=== PATIENT | female | born 1940 | race Caucasian/White ===

== ENCOUNTER 2022-01-28 06:25 | Day surgery (SDC) | payer MEDICARE, OTHER ==
[2022-01-28] MEDS ORDERED: BALANCED SALT IRRIG SOLN COMB1 500 ML, EPINEPHRINE-PF 1:1000 0.5 MG IO ONE ×4 (07:00→09:30)
[2022-01-28] MEDS ORDERED: BALANCED SALT IRRIG SOLN COMB1 0 ML ONE (07:09)
[2022-01-28] MEDS ORDERED: TETRACAINE HCL 0.5% OPHT DROP 2 ML BOTTLE ONE (07:09)
[2022-01-28] MEDS ORDERED: LIDOCAINE HCL-MPF 1% 5 ML VIAL ONE (07:09)
[2022-01-28] MEDS ORDERED: BALANCED SALT IRRIG SOLN COMB2 15 ML IRRIG.SOLN ONE (07:09)
[2022-01-28] MEDS ORDERED: MOXIFLOXACIN HCL 3 ML OPHT DROPS ONE (07:10)
[2022-01-28] MEDS ORDERED: ACETYLCHOLINE CHLORIDE 1% OPHT 1 EA KIT ONE (07:10)
[2022-01-28] MEDS ORDERED: PROPARACAINE 0.5% OPHT DROP 15 ML BOTTLE ONE (07:59)
[2022-01-28] MEDS ORDERED: PHENYLEPHRINE 2.5% OPHT DROP 2 ML BOTTLE ONE (07:59)
[2022-01-28] MEDS ORDERED: CYCLOPENTOLATE 1% OPHT DROP 2 ML BOTTLE ONE (07:59)
[2022-01-28] MEDS ORDERED: TROPICAMIDE 1% OPHT DROP 3 ML BOTTLE ONE (07:59)
[2022-01-28] MEDS ORDERED: KETOROLAC 0.5% OPHT DROP 3 ML BOTTLE ONE (07:59)
[2022-01-28] MEDS ORDERED: CIPROFLOXACIN 0.3% OPHT DROP 2.5 ML BOTTLE ONE (07:59)
[2022-01-28 08:04] LABS: MEAN CORPUSCULAR HEMOGLOBIN 30.4 uug (24.7-32.8); MEAN CORPUSCULAR VOLUME 90.7 fL (75.5-95.3); PLATELET COUNT (AUTO) 154 K/uL (179-408)
[2022-01-28 08:14] LABS: ALANINE AMINOTRANSFERASE 18 U/L (14-59); ALKALINE PHOSPHATASE 78 U/L (50-136); ASPARTATE AMINOTRANSFERASE 15 U/L (15-37); BILIRUBIN,TOTAL 0.3 mg/dL (0.2-1.0); CARBON DIOXIDE 22 mmol/L (21-32); CHLORIDE 107 mmol/L (98-107); CREATININE 2.2 mg/dL (0.6-1.3); GLUCOSE 110 mg/dL (74-106); POTASSIUM 4.4 mmol/L (3.5-5.1); TOTAL PROTEIN, SERUM 7.6 g/dL (6.4-8.2); UREA NITROGEN, BLOOD 54 mg/dL (7-18)
[2022-01-28] MEDS ORDERED: TRYPAN BLUE 0.5 ML DISP.SYRIN ONE (08:36)
[2022-01-28 08:41] LABS: *BILIRUBIN,URIN NEGATIVE (NEGATIVE); *BLOOD, URINE NEGATIVE (NEGATIVE); *CLARITY,URINE CLEAR (CLEAR); *COLOR,URINE YELLOW (YELLOW); *KETONES,URINE NEGATIVE (NEGATIVE); *UROBILINOGEN,URINE 0.2 E.U./dl (NORMAL); LEUKOCYTE ESTERASE ,URINE 1+ (NEGATIVE); NITRITE, URINE NEGATIVE (NEGATIVE); UGLUCOSE NEGATIVE (NEGATIVE)
[2022-01-28] MEDS ORDERED: methylPREDNISolone SOD SUCC 125 MG/2 ML VIAL ONE (09:42)
[2022-01-28] MEDS ORDERED: FENTANYL CITRATE 100 MCG/2 ML AMPUL ONE (09:42)
[2022-01-28] MEDS ORDERED: BUPIVACAINE PF 0.5% 30 ML VIAL ONE (09:50)
[2022-01-28] MEDS ORDERED: HYALURONIDASE,OVINE 200 UNITS/ML VIAL ONE (09:51)
[2022-01-28] MEDS ORDERED: HYALURONATE SODIUM 8.5 MG/0.85 ML ONE (10:18)
[2022-01-28] MEDS ORDERED: BALANCED SALT IRRIG SOLN COMB1 500 ML ONE (10:34)
[2022-01-28] MEDS ORDERED: NEO/POLYMYX B/DEXAME OPHT OINT 3.5 GM TUBE ONE (10:56)
[2022-01-28 11:13] LABS: BACTERIA,URINE FEW /HPF (NONE SEEN); RBC,URINE 0-3 /HPF (0-3); SQUAMOUS EPITHELIAL CELL,UR FEW /HPF (NONE SEEN)
[2022-01-28] MEDS ORDERED: PROPOFOL 200 MG/20 ML BOTTLE ONE (11:31)
[2022-01-28] MEDS ORDERED: LIDOCAINE-MPF 2% 5 ML VIAL ONE (11:31)
== END 2022-01-28 12:20 ==
LOC: DS 06:25
PROVIDERS: ATTEND Ophthalmology
DX: E11.36 Type 2 diabetes mellitus with diabetic cataract (principal); H25.12 Age-related nuclear cataract, left eye; I10 Essential (primary) hypertension; E78.00 Pure hypercholesterolemia, unspecified; K21.9 Gastro-esophageal reflux disease without esophagitis; D64.9 Anemia, unspecified; Z79.4 Long term (current) use of insulin; Z79.899 Other long term (current) drug therapy; Z98.890 Other specified postprocedural states; Z79.01 Long term (current) use of anticoagulants
CPT/HCPCS: 36415; 66984; 80053; 81001; 85025; 85730; 87086; 87426; J0171 ×2; J2930; J3010; J3471; J3490 ×3; J7120; J7321; V2632; A4663; Q9968

== ENCOUNTER 2022-02-11 09:06 | Day surgery (SDC) | payer MEDICARE, OTHER ==
[~2022-02-11 09:06] MED LIST: ACETYLCHOLINE CHLORIDE 1% OPHT 1 EA KIT ONE; BALANCED SALT IRRIG SOLN COMB1 500 ML, EPINEPHRINE-PF 1:1000 0.5 MG IO ONE; BALANCED SALT IRRIG SOLN COMB2 15 ML IRRIG.SOLN ONE; BUPIVACAINE PF 0.5% 30 ML VIAL ONE; HYALURONATE SODIUM 8.5 MG/0.85 ML ONE; HYALURONIDASE,OVINE 200 UNITS/ML VIAL ONE; LIDOCAINE HCL-MPF 1% 5 ML VIAL ONE; MOXIFLOXACIN HCL 3 ML OPHT DROPS ONE; NEO/POLYMYX B/DEXAME OPHT OINT 3.5 GM TUBE ONE; TETRACAINE HCL 0.5% OPHT DROP 2 ML BOTTLE ONE; TRYPAN BLUE 0.5 ML DISP.SYRIN ONE
[2022-02-11] MEDS ORDERED: TROPICAMIDE 1% OPHT DROP 3 ML BOTTLE ONE (09:18)
[2022-02-11] MEDS ORDERED: PHENYLEPHRINE 2.5% OPHT DROP 2 ML BOTTLE ONE (09:18)
[2022-02-11] MEDS ORDERED: KETOROLAC 0.5% OPHT DROP 3 ML BOTTLE ONE (09:18)
[2022-02-11] MEDS ORDERED: CIPROFLOXACIN 0.3% OPHT DROP 2.5 ML BOTTLE ONE (09:18)
[2022-02-11] MEDS ORDERED: CYCLOPENTOLATE 1% OPHT DROP 2 ML BOTTLE ONE (09:19)
[2022-02-11] MEDS ORDERED: PROPARACAINE 0.5% OPHT DROP 15 ML BOTTLE ONE (09:20)
[2022-02-11] MEDS ORDERED: LIDOCAINE HCL 2% 20 ML VIAL ONE (09:36)
[2022-02-11] MEDS ORDERED: TETRACAINE HCL 0.5% OPHT DROP 2 ML BOTTLE ONE (09:36)
[2022-02-11] MEDS ORDERED: MIDAZOLAM HCL 10 MG/2 ML VIAL ONE (09:46)
[2022-02-11] MEDS ORDERED: FENTANYL CITRATE 100 MCG/2 ML AMPUL ONE (09:46)
[2022-02-11] MEDS ORDERED: MIDAZOLAM HCL 2 MG/2 ML VIAL ONE (09:51)
[2022-02-11] MEDS ORDERED: HYALURONATE SODIUM 8.5 MG/0.85 ML ONE (10:27)
[2022-02-11] MEDS ORDERED: BALANCED SALT IRRIG SOLN COMB1 500 ML ONE (10:35)
[2022-02-11] MEDS ORDERED: EPHEDRINE SULFATE 50 MG/ML AMPUL ONE (11:33)
[2022-02-11] MEDS ORDERED: PROPOFOL 200 MG/20 ML BOTTLE ONE (11:33)
[2022-02-11] MEDS ORDERED: LIDOCAINE-MPF 2% 5 ML VIAL ONE (11:33)
== END 2022-02-11 13:11 | disposition home or self-care (01) ==
LOC: DS 09:06
PROVIDERS: ATTEND Ophthalmology
DX: E11.36 Type 2 diabetes mellitus with diabetic cataract (principal); H25.89 Other age-related cataract; I10 Essential (primary) hypertension; K21.9 Gastro-esophageal reflux disease without esophagitis; F41.9 Anxiety disorder, unspecified; Z79.84 Long term (current) use of oral hypoglycemic drugs; Z79.899 Other long term (current) drug therapy; Z98.890 Other specified postprocedural states
CPT/HCPCS: 66984; J0171; J2250; J3471; J3490 ×5; J7120; J7321 ×2; V2632; A4663; J3010; Q9968